=== PATIENT | male | born 1975 | race Caucasian/White ===

== ENCOUNTER → 2017-02-10 | Outpatient (CLI) | payer MEDICAID | LOC: FIMAGING 17:05 | PROVIDERS: ATTEND Internal Medicine Hematology & Oncology | DX: R05 Cough (principal) | CPT/HCPCS: 82784-90 ==

== ENCOUNTER → 2018-01-27 | Outpatient (CLI) | payer MEDICAID | LOC: CIMAGING 09:53 → EDSTATUS 14:20 | PROVIDERS: ATTEND Internal Medicine | DX: M25.562 Pain in left knee (principal); M25.561 Pain in right knee | CPT/HCPCS: 73565-PO; 76705-PO ==

== ENCOUNTER → 2018-01-27 | Outpatient (CLI) | payer MEDICAID | LOC: CIMAGING 09:48 | PROVIDERS: ATTEND Nurse Practitioner | DX: K76.0 Fatty (change of) liver, not elsewhere classified (principal); K80.20 Calculus of gallbladder without cholecystitis without obstruction | CPT/HCPCS: 76705-PO ==

== ENCOUNTER 2018-03-14 11:20 | Observation (INO) | payer MEDICAID ==
[2018-03-14] MEDS ORDERED: LR 1,000 ML IV ONE (11:28)
--- NOTE | 2018-03-14 11:44 | PDHPUP ---
History & Physical Update H&P update statement: This history and physical update is based on an assessment of the patient which was completed after admission or registration (within 24 hours), but prior to the surgery/procedure. H&P update: H&P reviewed & patient examined, no change in patient's condition since H&P completed
[2018-03-14] MEDS ORDERED: ceFAZolin 2 GM/SWFI 2 GM/20 ML SYR IVP ONE (12:44)
[2018-03-14] MEDS ORDERED: ONDANSETRON 4 MG/2 ML VIAL IVP PRN (12:45)
[2018-03-14] MEDS ORDERED: ZOLPIDEM TARTRATE 5 MG TAB PO PRN (12:45)
[2018-03-14] MEDS ORDERED: ACETAMINOPHEN 325 MG TAB PO PRN (12:45)
--- NOTE | 2018-03-14 12:51 | POSTOPPROG ---
Post Op Note Date of Operation: 03/14/18 Surgeon: Ajith Awad Pt Skilled: Barbara Arce PA-C Anesthesia: GET(General Endotracheal) Pre-op Diagnosis: cholelithiasis Post-op Diagnosis: cholelithiasis Procedure: lap cholecystectomy with intraoperative cholangiogram Findings: gallbladder packed with stones, neg IOC, notable bleeding SQ periumb vessel Inf/Abcess present in the surg proc area at time of surgery?: No EBL: 50-100 Complications: no immediate Specimen(s): gallbladder with stones
[2018-03-14] MEDS ORDERED: BUPIVACAINE/EPI 0.5% 30 ML SDV ONE (12:52)
[2018-03-14] MEDS ORDERED: GLUCAGON HCL 1 MG VIAL ONE (12:53)
[2018-03-14] MEDS ORDERED: IOPAMIDOL (ISOVUE-M 300) 15 ML VIAL ONE (12:54)
[2018-03-14] MEDS ORDERED: IOPAMIDOL (ISOVUE-300) 150 ML BTL ONE (12:56)
--- NOTE | 2018-03-14 13:17 | PDANEPAE ---
ANE History of Present Illness cholelithiasis ANE Past Medical History - Cardiovascular History Hx Hypertension: Yes Hx Arrhythmias: No Hx Chest Pain: No Hx Coronary Artery / Peripheral Vascular Disease: No Hx CHF / Valvular Disease: No Hx Palpitations: No - Pulmonary History Hx COPD: No Hx Asthma/Reactive Airway Disease: No Hx Recent Upper Respiratory Infection: Yes Hx Oxygen in Use at Home: Yes O2 in Use at Home (L/minute): 5L Hx Sleep Apnea: Yes Sleep Apnea Screening Result - Last Documented: Positive Pulmonary History Comment: double pna 2009 lost most of lung capacity after pneumonia. melissa positive. If pt is off 02 longer than a few minutes he desats rapidly and HR increases to 130's - Neurologic History Hx Cerebrovascular Accident: No Hx Seizures: No Hx Dementia: No Neurologic History Comment: comp fx t5-t10 chronic pain - Endocrine History Hx Diabetes: Yes Endocrine History Comment: type 2 - Renal History Hx Renal Disorders: No - Liver History Hx Hepatic Disorders: Yes Hepatic History Comment: non etoh fatty liver disease - Neurological & Psychiatric Hx Hx Neurological and Psychiatric Disorders: Yes Neurological / Psychiatric History Comment: depression - Cancer History Hx Cancer: No - Congenital Disorder History Hx Congenital Disorders: No - GI History Hx Gastrointestinal Disorders: Yes Gastrointestinal History Comment: small hiatal hernia - Other Health History Other Health History: 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 sore on top of head. pt has hutchison - Chronic Pain History Chronic Pain: Yes (t5-10 scar tissue after broken bake) - Surgical History Prior Surgeries: addenoids at 9 yo ANE Review of Systems Review of Systems: - Exercise capacity METS (RN): 3 METS ANE Patient History - Allergies Allergies/Adverse Reactions: No Known Allergies Allergy (Verified 03/14/18 12:14) - Home Medications Home Medications: Effexor 06/25/10 [Last Taken 03/13/18] MORPHINE SULF 06/25/10 [Last Taken 03/14/18] MORPHINE SULFATE 06/25/10 [Last Taken 03/14/18] SOMA 06/25/10 [Last Taken 03/14/18] Aspirin 81mg (*) 03/13/18 [Last Taken 02/12/18] Carisoprodol 03/13/18 [Last Taken 03/14/18] Cholecalciferol (Vitamin D3) 03/13/18 [Last Taken 03/12/18] Coq10 03/13/18 [Last Taken 03/12/18] Excedrin Migraine Geltab 03/13/18 [Last Taken 02/28/18] Flovent 110 MCG Hfa MDI (*) 03/13/18 [Last Taken 02/28/18] Herbals/Supplements -Info Only 03/13/18 [Last Taken 03/12/18] Losartan Potassium 03/13/18 [Last Taken 03/13/18] Metformin HCl 03/13/18 [Last Taken 03/13/18] Methylphenidate HCl 03/13/18 [Last Taken 03/04/18] Naproxen 03/13/18 [Last Taken 03/09/18] Ondansetron Odt [Zofran Odt] 03/13/18 [Last Taken 03/13/18] Prochlorperazine Maleate 03/13/18 [Last Taken 03/13/18] Sumatriptan 03/13/18 [Last Taken 02/28/18] Testosterone 03/13/18 [Last Taken 02/28/18] Vitamin B Complex 03/13/18 [Last Taken 03/12/18] Zembrace Symtouch 03/13/18 [Last Taken 03/13/18] - NPO status NPO Since - Liquids (Date): 03/14/18 NPO Since - Liquids (Time): 09:30 NPO Since - Solids (Date): 03/13/18 NPO Since - Solids (Time): 20:00 - Smoking Hx Smoking Status: Never smoked - Family Anes Hx Family Hx Anesthesia Complications: none ANE Labs/Vital Signs - Labs Result Diagrams: 03/14/18 11:50 - Vital Signs Blood Pressure: 138/92 Heart Rate: 102 Respiratory Rate: 20 O2 Sat (%): 98 Height: 175.26 cm Weight: 119.295 kg ANE Physical Exam - Airway Neck exam: FROM Mallampati Score: Class 2 Mouth exam: normal dental/mouth exam - Pulmonary Pulmonary: no respiratory distress - Cardiovascular Cardiovascular: regular rate and rhythym - ASA Status ASA Status: III ANE Anesthesia Plan Anesthesia Plan: general endotracheal anesthesia
[2018-03-14] MEDS ORDERED: PROPOFOL 200 MG/20 ML VIAL ONE ×2 (13:23→14:08)
[2018-03-14] MEDS ORDERED: HYDROmorphONE/DILAUDID 2 MG/ML INJ ONE ×3 (13:23→15:21)
[2018-03-14] MEDS ORDERED: fentaNYL 100 MCG/2 ML INJ ONE ×3 (13:23→14:11)
[2018-03-14] MEDS ORDERED: KETOROLAC 30 MG/1 ML SDV ONE (14:08)
[2018-03-14] MEDS ORDERED: DEXAMETHASONE 4 MG/ML VIAL ONE (14:08)
[2018-03-14] MEDS ORDERED: ONDANSETRON 4 MG/2 ML VIAL ONE ×3 (14:08→15:39)
[2018-03-14] MEDS ORDERED: HYDROmorphONE/DILAUDID 2 MG/ML INJ IVP PRN (14:20)
[2018-03-14] MEDS ORDERED: fentaNYL 100 MCG/2 ML INJ IVP PRN (14:20)
[2018-03-14] MEDS ORDERED: oxyCODONE IR 5 MG TAB PO PRN (14:20)
[2018-03-14] MEDS ORDERED: NALOXONE HCL 0.4 MG/ML INJ IVP PRN (14:20)
[2018-03-14] MEDS ORDERED: ESMOLOL HCL 100 MG/10 ML VIAL IV ONE (14:32)
[2018-03-14] MEDS ORDERED: LABETALOL HCL 5 MG/ML 20 ML MDV ONE (15:21)
--- NOTE | 2018-03-14 15:21 | POSTANESTH ---
Post Anesthetic Evaluation Cardiovascular Status: Normal, Stable, Tx Hyper/Hypo-tension Respiratory Status: Normal, Stable Level of Consciousness/Mental Status: Can Participate in Eval Pain Control: Adequate, Prn Tx Ordered Nausea/Vomiting Control: Adequate, Prn Tx Ordered Complications Possibly Related to Anesthesia: None Noted
[2018-03-14] MEDS: ONDANSETRON 4 MG/2 ML VIAL IVP PRN ×2 (15:25→15:43)
[2018-03-14] MEDS: LABETALOL HCL 5 MG/ML 20 ML MDV IVP PRN ×4 (15:29→16:12)
[2018-03-14] MEDS ORDERED: PROMETHAZINE HCL 25 MG/ML INJ ONE (15:39)
[2018-03-14] MEDS: PROMETHAZINE HCL 25 MG/ML INJ IVP PRN ×2 (15:54→16:13)
[2018-03-14] MEDS ORDERED: PROMETHAZINE HCL 25 MG/ML INJ IVP PRN (16:00)
--- NOTE | 2018-03-14 16:36 | GOP ---
[f rep st] OPERATIVE REPORT DATE OF OPERATION: 03/14/2018 SURGEON: Ajith Awad MD CLOTH PICKER: Barbara Arce PA-C. ANESTHESIA: General. ANESTHESIOLOGIST: Mario Light MD PREOPERATIVE DIAGNOSIS: Biliary colic. POSTOPERATIVE DIAGNOSIS: Biliary colic. PROCEDURE PERFORMED: Laparoscopic cholecystectomy, intraoperative cholangiography. FINDINGS: Normal IOC. Extensive gallstones. Subcutaneous periumbilical nuisance bleeding. INDICATIONS: 43-year-old male with a significant history for CVID, presents with a recurrent biliary colic and elevated liver enzymes. He is undergoing a laparoscopic cholecystectomy at this time. Risks and benefits were explained of bleeding, infection, open conversion, bowel injury, retained stone, potential for postoperative ERCP. All questions were answered. He desires to proceed. A assembler surgical garment is standard and necessary and customary for the safe performance of this procedure. DESCRIPTION OF PROCEDURE: General anesthesia was induced. The abdomen was preinjected with 0.5% Marcaine with epinephrine. A vertical supraumbilical midline incision was created. The markedly obese abdomen was dissected down toward the abdominal wall. The midline fascia was opened, allowing placement of a 10 mm trocar. Three additional 5 mm upper ports were inserted. The liver was firm and fatty in appearance. No evidence of nodularity was present. The gallbladder was noted to be massively packed with stones. This was retracted cephalad. Both duct and artery were circumferentially encompassed, confirming the critical view of safety. The duct was notably small in caliber. This was occluded on the gallbladder side and opened with the egress of clear stoddard bile. Intraoperative cholangiography was performed showing normal intra and extrahepatic ductal filling with rapid duodenal emptying with a smooth tapering of the ampulla. There was normal intrahepatic filling without defects. The clamp was removed. The duct was multiply clipped and divided with the ultrasonic dissector as was the artery. The gallbladder was lifted from the liver bed fossa and brought through umbilical port site intact using EndoCatch pouch. Satisfactory hemostasis was assured. Loose stones were individually retrieved. The specimen and trocars were removed under direct visualization. Significant bleeding was noted coming from subcutaneous periumbilical vessels. This was thought likely secondary from possible underlying portal hypertension. This nuisance bleeding was controlled with a suture ligature line for satisfactory hemostasis. The wounds were closed in layers with absorbable sutures by Dermabond. The patient was taken to recovery uneventfully. /[id number]/MODL MTDD
[2018-03-14] MEDS ORDERED: SUMATRIPTAN SUCCINATE SQ PRN (18:57)
[2018-03-14] MEDS: oxyCODONE IR 5 MG TAB PO PRN (19:33)
[2018-03-14] MEDS ORDERED: ALBUTEROL 60 PUFFS/8 GM MDI IH PRN (20:22)
[2018-03-14] MEDS: CARISOPRODOL 350 MG TAB PO SCH (21:14)
[2018-03-14] MEDS: HYDROmorphONE/DILAUDID 2 MG/ML INJ IVP PRN (21:16)
[2018-03-14] MEDS ORDERED: NAPROXEN SODIUM 220 MG TAB PO PRN (21:56)
[2018-03-14] MEDS: morphINE SR 30 MG TAB PO SCH (22:14)
[2018-03-14] MEDS: VENLAFAXINE XR 75 MG CAP PO SCH (22:15)
[2018-03-15] MEDS ORDERED: hydrALAZINE 20 MG/ML VIAL IVP ONE (01:00)
[2018-03-15] MEDS: HYDROmorphONE/DILAUDID 2 MG/ML INJ IVP PRN ×2 (01:02→05:32)
[2018-03-15] MEDS ORDERED: hydrALAZINE 20 MG/ML VIAL IVP PRN (03:05)
[2018-03-15] MEDS: CARISOPRODOL 350 MG TAB PO SCH ×2 (05:28→12:23)
[2018-03-15] MEDS ORDERED: NS 1,000 ML IV ONE (08:00)
[2018-03-15] MEDS: morphINE SR 30 MG TAB PO SCH (08:22)
[2018-03-15] MEDS: VENLAFAXINE XR 75 MG CAP PO SCH (08:22)
[2018-03-15] MEDS: oxyCODONE IR 5 MG TAB PO PRN (08:23)
[2018-03-15] MEDS ORDERED: LR 1,000 ML IV SCH (08:30)
--- NOTE | 2018-03-15 08:53 | GDS ---
[f rep st] DISCHARGE SUMMARY HOSPITAL COURSE: 43-year-old male with chronic comorbid conditions including common variable immunodeficiency, diabetes mellitis, obesity, and chronic pain syndrome, with a complaint of cholelithiasis in the outpatient setting. He was scheduled for an elective laparoscopic cholecystectomy with intraoperative cholangiogram on March [address] Awad. He underwent surgery with no complications and normal cholangiogram, and was kept in observation due to his comorbid conditions. During his hospital stay, he has been complaining of migraine but has had an otherwise uncomplicated hospital stay. He has been ambulating in the halls. No bowel or bladder complaints. Denies abdominal pain. Denies nausea or vomiting. Patient has an extensive medication list, for which he can adequately control his pain as well as migraines. During his hospital stay, he was given IV fluids and pain medication as needed. Patient will be discharged to home today. DISCHARGE MEDICATIONS: He will continue his home medications. He was given a prescription for oxycodone IR 5 mg. DISCHARGE INSTRUCTIONS: He was instructed to call the office with fever, chills , worsening abdominal pain, or wound concerns. Activity as tolerated. Regular diet. Wound care instructions given to patient and his family. May shower. FOLLOW UP: Followup visit in the office in 2 weeks. /[id number]/MODL MTDD
[2018-03-15] MEDS ORDERED: VENLAFAXINE XR 75 MG CAP PO SCH (09:00)
[2018-03-15] MEDS ORDERED: ATORVASTATIN CALCIUM 10 MG TAB PO SCH (09:00)
[2018-03-15] MEDS ORDERED: LOSARTAN POTASSIUM 50 MG TAB PO SCH (09:00)
[2018-03-15] MEDS ORDERED: HYDROCHLOROTHIAZIDE 25 MG TAB PO SCH (09:00)
--- NOTE | 2018-03-15 11:48 | ASMTCMCOM ---
CM Note CM Note Notes: Spoke w/RN, pt here for scheduled surgery. Lives in [place] and has a mother who is involved, anticipate will dc home w/support of family when medically stable. CM available for any changes. DC Plan: Independent Date Signed: 03/15/2018 11:47 AM Electronically Signed By:Vane Blevins RN
[2018-03-15 11:58] VITALS: BP 150/70
[2018-03-16] MEDS ORDERED: metFORMIN SR 500 MG TAB PO SCH (18:00)
== END 2018-03-15 14:18 | disposition home or self-care (01) ==
LOC: F3E 11:20 → F3N 18:41
PROVIDERS: ADMIT Surgery; ATTEND Surgery
PROC: 0FT44ZZ Resection of Gallbladder, Percutaneous Endoscopic Approach (ICD-10-PCS; principal; 2018-03-14 12:45)
DX: K80.20 Calculus of gallbladder without cholecystitis without obstruction (principal); E11.9 Type 2 diabetes mellitus without complications; D83.9 Common variable immunodeficiency, unspecified; E66.9 Obesity, unspecified
CPT/HCPCS: 47562; 76001; G0378; J0360; J0690; J1100; J1170; J1610; J1642; J1885; J2405; J2550; J2704; J3010; Q9967